=== PATIENT | female | born 1930 | race Asian ===

== ENCOUNTER → 2017-01-06 | Outpatient (CLI) | payer MEDICARE, BC | END | disposition home or self-care (01) | LOC: CDC 12:48 | DX: R94.31 Abnormal electrocardiogram [ECG] [EKG] (principal) | CPT/HCPCS: 93000 ==

== ENCOUNTER → 2017-10-06 | Outpatient (CLI) | payer BC | END | disposition home or self-care (01) | LOC: CDC 12:07 | DX: Z01.810 Encounter for preprocedural cardiovascular examination (principal); R94.31 Abnormal electrocardiogram [ECG] [EKG] | CPT/HCPCS: 93000 ==

== ENCOUNTER 2017-10-28 21:52 | Observation (INO) | payer BC ==
[~2017-10-28] VITALS: Ht 152.4 cm; Wt 64.1 kg
[2017-10-28 23:15] LABS: HEMATOCRIT 32.9 % (36.0-46.0); MCH 30.1 PG (29.0-34.0); MCHC 33.4 G/DL (30.0-36.0); MCV 89.9 FL (83-99); PLATELET COUNT 168 K/uL (156-360); RBC DIS.WIDTH-CV 13.3 % (11.8-14.6); RBC DIS.WIDTH-SD 43.6 % (39-53); RED BLOOD COUNT 3.66 M/uL (3.80-5.20); WHITE BLOOD COUNT 7.3 K/uL (4.1-10.2)
[2017-10-28 23:31] LABS: CHLORIDE 106 mEq/L (99-109); POTASSIUM 3.9 mEq/L (3.7-5.4); SODIUM 141 mEq/L (136-147)
[2017-10-28 23:33] LABS: GLUCOSE 102 mg/dL (70-99)
[2017-10-28 23:37] LABS: CREATININE 0.9 mg/dL (0.6-1.3); GFR ESTIMATE (CALCULATED) > 59 mL/min/
[2017-10-28 23:38] LABS: UREA NITROGEN (BUN) 15 mg/dL (9-23)
[2017-10-29 01:54] VITALS: BP 162/70
[2017-10-29 06:55] LABS: HEMATOCRIT 32.3 % (36.0-46.0); HEMOGLOBIN 10.4 G/DL (11.9-15.5); MCH 29.1 PG (29.0-34.0); MCHC 32.2 G/DL (30.0-36.0); MCV 90.5 FL (83-99); PLATELET COUNT 165 K/uL (156-360); RBC DIS.WIDTH-CV 13.2 % (11.8-14.6); RBC DIS.WIDTH-SD 43.4 % (39-53); RED BLOOD COUNT 3.57 M/uL (3.80-5.20); WHITE BLOOD COUNT 7.4 K/uL (4.1-10.2)
[2017-10-29 07:48] VITALS: BP 154/70
[2017-10-29 10:59] VITALS: BP 124/62
[2017-10-29] MEDS ORDERED: CILOSTAZOL50 MG PO (12:24)
[2017-10-29] MEDS ORDERED: NEURONTIN300 MG PO (12:24)
[2017-10-29] MEDS ORDERED: PLAVIX75 MG PO (12:24)
[2017-10-29] MEDS ORDERED: PRINIVIL10 MG PO (12:25)
[2017-10-29] MEDS ORDERED: GLUCOPHAGE500 MG PO (12:25)
[2017-10-29 15:19] VITALS: BP 165/68
== END 2017-10-29 18:25 | disposition home or self-care (01) ==
LOC: EME → EDBD 21:52 → EDOF 10-29 00:39 → ENRESERV 10-29 01:02 → 3EAST 10-29 01:39
PROVIDERS: Emergency Medicine; Surgery
DX: I97.620 Postprocedural hemorrhage of a circulatory system organ or structure following other procedure (principal); Z95.820 Peripheral vascular angioplasty status with implants and grafts; I10 Essential (primary) hypertension; E11.51 Type 2 diabetes mellitus with diabetic peripheral angiopathy without gangrene; Z96.652 Presence of left artificial knee joint; Z79.84 Long term (current) use of oral hypoglycemic drugs
CPT/HCPCS: 80048; 85027; 99281; 99284; G0378; G8978 GP CI; G8979 GP CH; G8980 GP CI